=== PATIENT | female | born 1995 | race Caucasian/White ===

== ENCOUNTER 2018-01-30 13:55 | Emergency (ER) | payer BC ==
[2018-01-30] MEDS ORDERED: Tetan/Diph/Pertus SYR(Tdap)* 0.5 ML SYR(BOOSTRIX) use SYR IM ONE (15:16)
--- NOTE | 2018-01-30 16:19 | ED ---
Skin Complaint - HPI Summary HPI Summary: Rt hand dominant pt here w/ Rt elbow lac prior to arrival, Unsure of last tetanus - History of Current Complaint Chief Complaint: EDExtremityUpper Time Seen by Provider: 01/30/18 15:03 Stated Complaint: RT ARM INJURY Hx Obtained From: Patient, Family/Carpenter - female friend Pain Intensity: 0 PMH/Surg Hx/FS Hx/Imm Hx Infectious Disease History: No Infectious Disease History: Denies: Traveled Outside the [place] in Last 30 Days - Social History Alcohol Use: Weekly Substance Use Type: Reports: None Smoking Status (MU): Never Smoked Tobacco Physical Exam Vital Signs On Initial Exam: Initial Vitals Temp Pulse Resp BP Pulse Ox 97.8 F 77 16 122/74 96 01/30/18 13:58 01/30/18 13:58 01/30/18 13:58 01/30/18 13:58 01/30/18 13:58 Procedures - Laceration/Wound Repair 1 Location: upper extremity - Rt posterior elbow Description: Irregular - jagged edge Anesthesia: Local, 1.0%, L[place] Length, Depth and Shape: 1.5cm x 4mm (flap) Betadine Prep?: Yes Irrigated w/ Saline (ccs): 100 Laceration/Wound Explored: contaminated - debrided of tiny stones, dirt Closure: Single Layer Suture Type: Other - 5-0 ethilon Number of Sutures: 5 Layer Closure?: No Sterile Dressing Applied?: Yes - triple anbx ointment + gauze + KODAK wrap - hemodynamically stable Diagnostics - Vital Signs Vital Signs Temp Pulse Resp BP Pulse Ox 01/30/18 13:58 97.8 F 77 16 122/74 96 - Laboratory Lab Statement: Any lab studies that have been ordered have been reviewed, and results considered in the medical decision making process. Course/Dx - Diagnoses Provider Diagnoses: Laceration of right elbow Discharge - Sign-Out/Discharge Documenting (check all that apply): Patient Departure - Discharge Plan Condition: Stable Disposition: HOME Patient Education Materials: Laceration (DC), Care For Your Stitches (ED) [facility] [Medical Doctor] - Additional Instructions: Keep Dressing clean and dry and in place for the next 48 hours. After that time you may remove dressing, gently wash wound with soap and water, rinse well and pat dry with clean cloth. Reapply triple antibiotic ointment and clean gauze dressing. Continue this daily until sutures are removed. Call your PCP to schedule wound recheck and suture removal in 10-14 days. For pain/swelling, you may rest, ice, elevate and take ibuprofen with food. * If you develop redness, swelling, streaking, purulent drainage, fevers or chills, seek medical attention sooner or return to the emergency department. - Billing Disposition and Condition Condition: STABLE Disposition: Home
[2018-01-30 16:58] VITALS: BP 113/70
== END 2018-01-30 16:35 | disposition home or self-care (01) ==
LOC: ED 13:55
DX: S51.011A Laceration without foreign body of right elbow, initial encounter (principal); X58.XXXA Exposure to other specified factors, initial encounter; Y92.9 Unspecified place or not applicable
CPT/HCPCS: 12001; 90471; 90715; 99282